=== PATIENT | male | born 1960 | race Caucasian/White ===

== ENCOUNTER → 2016-10-19 | Outpatient (CLI) | payer OTHER ==
[~2016-10-19] MED LIST: DOBUTamine DRIP for NUC MED 500 MG in DEXTROSE/WATER 1 250ML.BAG IV ONE
--- NOTE | 2016-10-19 09:18 | US ---
EXAMINATION TYPE: US carotid duplex BILAT DATE OF EXAM: 10/19/2016 COMPARISON: NONE CLINICAL HISTORY: R42 Dizziness and giddiness. EXAM MEASUREMENTS: RIGHT: Peak Systolic Velocity (PSV) cm/sec ----- Right CCA: 123.9 ----- Right ICA: 88.5 ----- Right ECA: 96.3 ICA/CCA ratio: 0.7 RIGHT: End Diastole cm/sec ----- Right CCA: 19.5 ----- Right ICA: 27.4 ----- Right ECA: 7.7 LEFT: Peak Systolic Velocity (PSV) cm/sec ----- Left CCA: 94.4 ----- Left ICA: 96.3 ----- Left ECA: 102.3 ICA/CCA ratio: 1.0 LEFT: End Diastole cm/sec ----- Left CCA: 21.5 ----- Left ICA: 39.2 ----- Left ECA: 13.6 VERTEBRALS (direction of flow): Right Vertebral: Antegrade Left Vertebral: Antegrade Mild amount of plaque visualized bilaterally. No elevated velocities, no significant stenosis IMPRESSION: Mild amount of plaque visualized bilaterally. No elevated velocities, no significant stenosis Criteria for Assigning % of Stenosis / Diameter reduction (Estimation based on the indirect measurements of the internal carotid artery velocities (ICA PSV). 1. Normal (no stenosis)=ICA PSV < 125 cm/s: ratio < 2.0: ICA EDV<40 cm/s. 2. Less than 50% stenosis=ICA PSV < 125 cm/s: ratio < 2.0: ICA EDV<40 cm/s. 3. 50 to 69% stenosis=ICA PSV of 125 to 230 cm/s: ration 2.0 ? 4.0: ICA EDV 40-100 cm/s. 4. Greater than 70% stenosis to near occlusion= ICA PSV > 230 cm/s: ratio > 4.0: ICA EDV > 100 cm/s. 5. Near occlusion= ICA PSV velocities may be low or undetectable: variable ratio and ICA EDV. 6. Total occlusion=unable to detect flow.
--- NOTE | 2016-10-19 12:39 | P.STRESS ---
- Stress Test Note Stress Test Results/Findings: Exam Performed: dobutamine stress echo Exam Date: 10/19/16 Reason for Exam: VERTIGO Height: 6 ft Weight: 167.829 kg Protocol: DOBUTAMINE Stage: 3 Duration of Exercise: 9:07 Resting Heart Rate: 85 Resting Blood Pressure: 140/69 Maximum Achieved Heart Rate: 138 Maximum Achieved Blood Pressure: 142/68 85% PMHR: 138 100% PMHR: 162 METS: Technologist Comment: Stress Test Results/Findings: This patient is being evaluated for cardiac status. Patient has history of of hypertension, family history and symptoms of dizziness. Baseline EKG shows sinus rhythm with normal IN and QRS duration with occasional PVCs. Blood pressure at rest is 140/69% of 85. A standard dose of dobutamine was initiated and was titrated to maximum 30 mics, achieving a maximal heart of 137 with a blood pressure of about 96/33. EKGs taken during and after dobutamine infusion did not reveal any significant changes to sized ischemia. Patient's blood pressure gradually improved to 140/60. Within about 8 minutes, Patient did not express any chest pain. Echo data: Baseline echo images showed normal wall motion and thickening. EKGs taken at low level and also peak infusion of dobutamine showed progressive augmentation of the wall motion and thickening. Final impression: #1. Negative dobutamine stress test #2. Negative dobutamine stress echo.
--- NOTE | 2016-10-23 10:03 | ECHOS ---
Stress Test Results/Findings: Exam Performed: dobutamine stress echo Exam Date: 10/19/16 Reason for Exam: VERTIGO Height: 6 ft Weight: 167.829 kg Protocol: DOBUTAMINE Stage: 3 Duration of Exercise: 9:07 Resting Heart Rate: 85 Resting Blood Pressure: 140/69 Maximum Achieved Heart Rate: 138 Maximum Achieved Blood Pressure: 142/68 85% PMHR: 138 100% PMHR: 162 METS: Technologist Comment: Stress Test Results/Findings: This patient is being evaluated for cardiac status. Patient has history of of hypertension, family history and symptoms of dizziness. Baseline EKG shows sinus rhythm with normal WA and QRS duration with occasional PVCs. Blood pressure at rest is 140/69% of 85. A standard dose of dobutamine was initiated and was titrated to maximum 30 mics, achieving a maximal heart of 137 with a blood pressure of about 96/33. EKGs taken during and after dobutamine infusion did not reveal any significant changes to sized ischemia. Patient's blood pressure gradually improved to 140/60. Within about 8 minutes, Patient did not express any chest pain. Echo data: Baseline echo images showed normal wall motion and thickening. EKGs taken at low level and also peak infusion of dobutamine showed progressive augmentation of the wall motion and thickening. Final impression: #1. Negative dobutamine stress test #2. Negative dobutamine stress echo. [facility]ITALBrianna
== END | disposition home or self-care (01) ==
LOC: RADUSMAIN 08:26
PROVIDERS: ATTEND Pediatrics
DX: I65.23 Occlusion and stenosis of bilateral carotid arteries (principal); R42 Dizziness and giddiness
CPT/HCPCS: 93350; 93017; 93880; Q9957

== ENCOUNTER → 2017-09-03 | Outpatient (CLI) | payer OTHER ==
[2017-09-03 16:47] LABS: HCT 40.7 % (39.0-53.0); HGB 13.9 gm/dL (13.0-17.5); MCH 31.9 pg (25.0-35.0); MCHC 34.1 g/dL (31.0-37.0); MCV 93.4 fL (80.0-100.0); Mean Platelet Volume 7.6; Platelet Count 235 k/uL (150-450); RBC 4.36 m/uL (4.30-5.90); WBC 7.3 k/uL (3.8-10.6)
[2017-09-03 16:52] LABS: Appearance,Urine Clear (Clear); Bilirubin,Urine Negative (Negative); Blood,Urine Negative (Negative); Color,Urine Yellow; Glucose,Urine (UA) Negative (Negative); Ketones,Urine Negative (Negative); Leukocyte Esterase,Urine Negative (Negative); Nitrite,Urine Negative (Negative); Protein,Urine Negative (Negative); Specific Gravity,Urine 1.015 (1.001-1.035); Urobilinogen,Urine <2.0 mg/dL (<2.0)
[2017-09-03 16:57] LABS: Partial Thromboplastin Time 22.8 sec (22.0-30.0); Prothrombin Time 10.1 sec (9.0-12.0)
[2017-09-03 16:59] LABS: Albumin 4.4 g/dL (3.5-5.0); Calcium 10.1 mg/dL (8.4-10.2); Potassium 4.5 mmol/L (3.5-5.1); Total Bilirubin 0.4 mg/dL (0.2-1.3); Total Protein 7.2 g/dL (6.3-8.2)
== END | disposition home or self-care (01) ==
LOC: LABPAT 15:44
PROVIDERS: ATTEND Orthopaedic Surgery
DX: Z01.818 Encounter for other preprocedural examination (principal); Z01.812 Encounter for preprocedural laboratory examination
CPT/HCPCS: 80053; 81003; 85027; 85610; 85730; 86850; 86900; 86901; 87070; 93005

== ENCOUNTER 2017-09-11 05:36 | Inpatient (IN) | payer OTHER ==
[2017-09-04 08:18] VITALS: BMI 50.1
[~2017-09-11 05:36] MED LIST changes: +ACETAMINOPHEN TAB 500 MG TAB PO ONE; +DEXAMETHASONE SOD PHOSPHATE 10 MG/ML 1 ML VIAL IV ONE; -DOBUTamine DRIP for NUC MED 500 MG in DEXTROSE/WATER 1 250ML.BAG IV ONE; +LIDOCAINE 1% 20 ML VIAL (10MG/ML) FOR IV START INTRADERMA PRN; +MELOXICAM 7.5 MG TAB PO ONE; +MIDAZOLAM 2 MG/2 ML VIAL IV PRN; +ONDANSETRON 4 MG/2 ML VIAL IVP ONE; +TRANEXAMIC ACID 1,000 MG in SODIUM CHLORIDE 0.9% 50 ML IVPB ONE; +fentaNYL (PF) 50 MCG/ML 2 ML AMP IV PRN
[2017-09-11] MEDS ORDERED: ROPIVACAINE 246.25 MG, EPINEPHrine 0.5 MG, KETOROLAC 30 MG, cloNIDine HCL/PF 80 MCG, WA... MISCELLANE ONE ×5 (06:22)
[2017-09-11] MEDS ORDERED: DIAZEPAM 5 MG TAB PO PRN ×2 (06:50)
[2017-09-11] MEDS ORDERED: NALOXONE 0.4 MG/ML 1 ML VIAL IV PRN (06:50)
[2017-09-11] MEDS ORDERED: MAGNESIUM HYDROXIDE 2,400 MG/10 ML CUP PO PRN (06:50)
[2017-09-11] MEDS: LACTATED RINGERS 1,000 ML IV SCH ×2 (06:50→20:51)
[2017-09-11] MEDS ORDERED: ONDANSETRON 4 MG/2 ML VIAL IVP PRN (06:50)
[2017-09-11] MEDS ORDERED: HYDROmorphone 0.5 MG/0.5 ML SYRINGE IVP PRN ×2 (06:50)
[2017-09-11] MEDS ORDERED: HYDROcodone/APAP 5-325MG 1 EACH TAB PO PRN (06:50)
[2017-09-11] MEDS ORDERED: HYDROmorphone 1 MG/ML 1 ML SYRINGE IVP PRN (06:50)
[2017-09-11] MEDS ORDERED: hydrOXYzine PAMOATE 25 MG CAP PO PRN (06:50)
[2017-09-11 07:04] LABS: Glucose,Whole Blood 103 mg/dL (75-99)
[2017-09-11] MEDS ORDERED: SODIUM CHLORIDE 0.9% 100 ML BAG ONE (07:07)
[2017-09-11] MEDS ORDERED: TRANEXAMIC ACID 1,000 MG/10 ML VIAL ONE (07:07)
[2017-09-11] MEDS ORDERED: HEPARIN SODIUM,PORCINE 10,000 UNIT/ML 1 ML VIAL ONE (07:07)
[2017-09-11] MEDS ORDERED: MIDAZOLAM 2 MG/2 ML VIAL ONE (07:07)
[2017-09-11] MEDS ORDERED: fentaNYL (PF) 50 MCG/ML 2 ML AMP ONE (07:07)
[2017-09-11] MEDS ORDERED: SODIUM CHLORIDE 0.9% IRRIG 1,000 ML BTL IRRIGATION ONE (07:07)
[2017-09-11] MEDS ORDERED: ceFAZolin 3,000 MG in SODIUM CHLORIDE 0.9% IRRIGATIO 3,000 ML IRRIGATION ONE (07:46)
--- NOTE | 2017-09-11 08:57 | P.OP ---
Date of Procedure: 09/11/17 Preoperative Diagnosis: Severe osteoarthritis left hip Postoperative Diagnosis: Severe osteoarthritis left hip Procedure(s) Performed: Left total hip arthroplasty with a direct anterior approach Implants: Jolly and nephew Polarstem size 4 standard Jolly & Nephew R3, 3 hole acetabular shell, 56 mm Jolly & Nephew reflection 6.5 mm cancellus screw, 20 mm 2 Jolly [employer] Nephew R3, XLPE 20 acetabular liner Jolly & Nephew Oxinium femoral head 36 m, +0 All components were press-fit. The articulation is Oxinium on polyethylene. Anesthesia: spinal Surgeon: Roger Kramer Rubber Compounder #1: Angelica Wick Estimated Blood Loss (ml): 200 (65 mL returned with Cell Saver) Pathology: other (Femoral head) Condition: stable Disposition: PACU Indications for Procedure: After failure of conservative treatment we discussed the surgical and nonsurgical treatment options at length. Patient wishes to proceed with a total hip arthroplasty with a direct anterior approach. Complications specific to this procedure were discussed at length, including but not limited to infection, leg length discrepancy, dislocation, and nerve injury. Patient is aware of all these complications and informed consent was obtained Operative Findings: The operative findings are consistent with severe osteoarthritis of the left hip Description of Procedure: Patient was seen and evaluated in the preoperative area, consent was reviewed, and the surgical site was marked with a skin marker. Patient was then brought to the operating room and given prophylactic antibiotics intravenously. 1 g of Tranexamic acid was also given. A spinal anesthetic was administered by the anesthesia department. The patient was then placed on the [place] table with the bony prominences well-padded. The hip area was then prepped and draped in usual sterile fashion. A universal timeout was then performed, which confirmed the patient's name, surgical site, ALLERGIES, and procedure being performed. Next the incision site was located at 1 cm distal and 1 cm lateral to the anterior superior iliac spine. The skin and subcutaneous tissues were sharply incised. Incision was carefully dissected down to the fascia overlying the tensor fascia clement muscle. This fascia was then incised in line with the incision. Next, using blunt finger dissection, the tensor fascia clement muscle was dissected off its investing fascia. The muscle was then carefully retracted laterally with a cobra retractor over the lateral neck of the femur. Next, the circumflex vessels were identified and cauterized using the AquaMantis device. The anterior hip capsule was then exposed. The capsule was then opened and an inverted T fashion. Cobra retractors were then placed intracapsularly. The proximal femur was then visualized. The femoral neck was then osteotomized appropriate level above the lesser trochanter. Small amount of traction was placed with the [place] table. A small wedge of bone was then removed from the remaining femoral head. Next, using a corkscrew femoral head was easily removed from the acetabulum. On gross visual inspection, the femoral head had complete loss of articular cartilage in multiple periarticular osteophytes. Attention was then turned to the acetabulum. the acetabulum was exposed and any remaining labrum was excised. Sequential reaming of the acetabulum was performed using fluoroscopic guidance. When the appropriate size was reached, a trial was then placed. The position and fit of the trial was checked with fluoroscopy. The trial was then removed. Then, using fluoroscopic guidance, the final implant was impacted at 20 of anteversion and 40 of abduction, and fully seated in the acetabulum. 2 screws were then placed in the acetabulum. Again fluoroscopy was used to check position of the screws. Next, the liner was then impacted, with a 20 elevated liner located in the anterior superior quadrant. Component locking was confirmed. Attention was then directed to the femur. With the aid of the [place] table, the femur was externally rotated to approximately 130, extended, and abducted under the opposite leg. A side hook was then placed under the proximal femur, and the side hook elevator was used to elevate the proximal femur. Retractors were then placed. A capsular release was performed, as well as a release of the conjoined tendon, which afforded excellent visualization of the proximal femur. Next, a box osteotome was used to lateralize the proximal femur. A hand sprayer was then used to locate the femoral canal. Sequential broaching was then performed with appropriate size which afforded excellent fixation in the proximal femur. A trial was then placed with appropriate head and neck, and the hip was gently reduced with the aid of the [place] table. Fluoroscopy was then used to check position of the components, as well as to ensure equal leg lengths. The hip was then gently dislocated and the trials were then removed. Final implants were then impacted and the hip was again reduced. Final fluoroscopic x-rays confirmed that the components were in anatomic position, as well as equal leg lengths. The hip was also taken through range of motion, and found to be stable. The hip was then copiously irrigated with antibiotic solution with pulsatile lavage. The hip was then irrigated with Irrisept solution. The soft tissues were then injected with a ropivacaine solution, which consisted of 246.25 mg of ropivacaine, 0.5 mg of epinephrine, 30 mg of Toradol, 80 g of clonidine, and 48.45 mL of sterile water, for a total of 100 mL of fluid injected. A second dose of 1 g of Tranexamic acid was also given. the fascia was then closed with 2-0 strata fix suture. The subcutaneous tissue was closed with 3-0 Vicryl. The subcuticular tissue was closed with 3-0 strata fix suture. The skin was then closed with Dermabond glue and a sterile silver dressing. The patient was then transferred to the recovery room in stable condition. The property assistant DOMO Kong was required due to the complexity of surgery, and the need for skilled surgical assistant certified for positioning, draping, exposure, retraction, and closure of the wound.
--- NOTE | 2017-09-11 09:03 | FL ---
EXAMINATION TYPE: FL guidance operating room, XR Hip Limited LT DATE OF EXAM: 09/11/2017 CLINICAL HISTORY: Left hip pain status post replacement today. TECHNIQUE: Fluoroscopy. Limited intraoperative views left hip are acquired COMPARISON: None. FINDINGS: Fluoroscopic guidance was provided during hip replacement procedure performed by Dr. Lazara fonseca. A total of 50 seconds of fluoroscopic time was utilized during the procedure and 3 spot intraop erative images are acquired. Images acquired show metallic hardware from total hip arthroplasty which appears satisfactory in posi tion on single frontal projection. IMPRESSION: As Above.
--- NOTE | 2017-09-11 09:44 | XR ---
EXAMINATION TYPE: XR Hip Limited LT DATE OF EXAM: 09/11/2017 CLINICAL HISTORY: Left hip pain and osteoarthritis status post replacement earlier today. TECHNIQUE: Single AP portable view of left hip is obtained immediately postoperatively. COMPARISON: None. FINDINGS: Exam slightly suboptimal due to portable technique and patient's large body habitus. Metall ic hardware from left hip arthroplasty is seen and appears satisfactory in alignment and position. Ov erlying soft tissue is unremarkable. IMPRESSION: Metallic hardware from left hip arthroplasty is satisfactory in position.
[2017-09-11] MEDS: ASPIRIN 325 MG TAB PO SCH ×2 (15:43→20:56)
[2017-09-11] MEDS: HYDROcodone/APAP 5-325MG 1 EACH TAB PO PRN ×2 (15:54→22:03)
[2017-09-11] MEDS: SODIUM CHLORIDE 0.9% 1,000 ML IV SCH (16:44)
[2017-09-11] MEDS ORDERED: guaiFENesin 600 MG TABLET.ER PO PRN (18:08)
--- NOTE | 2017-09-11 20:29 | CONS ---
CONSULTATION DATE OF SERVICE: 09/11/2017. REASON FOR CONSULTATION: Advice regarding hypertension, other medical issues requested by Orthopedic Surgery. HISTORY OF PRESENT ILLNESS: This 57-year-old gentleman with a past medical history of multiple medical problems, including hypertension, DJD, sleep apnea being followed by Dr. Davey Hillman in the outpatient setting, is apparently using prednisone 10 mg for shoulder pain since last summer. The patient underwent left hip arthroplasty by Dr. Kramer. The patient had some issues related to hypotension during the surgery. Apparently the blood pressure is 102/68. There is no history of any fever, rigors. No history of headache, loss of consciousness. No chest pain, palpitation at this time. PAST MEDICAL HISTORY: History of hypertension, DJD, history of sleep apnea, history of colonoscopy. MEDICATIONS PRIOR TO ADMISSION: Include home medications are: 1. Prednisone 10 mg daily. 2. Mucinex 600 mg daily p.r.n. 3. Norvasc 5 mg p.o. daily. 4. Adipex 37.5 mg p.o. q.a.m. 5. Naprosyn 100 mg p.o. b.i.d. 6. Multivitamin 1 p.o. daily. 7. Zestril 2 tablets p.o. daily. 8. Lasix 20 mg p.o. daily. ALLERGIES: None. FAMILY HISTORY: No history of heart disease or strokes in family. SOCIAL HISTORY: No history of smoking. Occasional alcohol intake. REVIEW OF SYSTEMS: ENT: No diminished hearing, diminished vision. CARDIOVASCULAR: No angina, palpitations. RESPIRATORY: No cough or hemoptysis. GI: No nausea or vomiting. : No dysuria. NERVOUS: No numbness or weakness. ALLERGY/IMMUNOLOGY: No asthma or hay fever. MUSCULOSKELETAL: As mentioned earlier. ENDOCRINE: As mentioned earlier. CONSTITUTIONAL: As mentioned earlier. DERMATOLOGY: Negative. RHEUMATOLOGY: Negative. PSYCHIATRY: As mentioned earlier. PHYSICAL EXAMINATION: Alert, oriented x3. Pulse 97, blood pressure 102/68, respirations 16, temperature 98 degrees, pulse ox 94% on 3L. HEENT: Conjunctivae normal. Oral mucosa moist. NECK: No jugular venous distention. No carotid bruits. No lymph node enlargement. CARDIOVASCULAR: S1, S2 muffled. No S3, S4. RESPIRATORY: Breath sounds diminished in the bases. No rhonchi. No crackles. ABDOMEN: Soft, nontender. No mass palpable. LEGS: Status post left hip arthroplasty. NERVOUS SYSTEM: Higher functions as mentioned earlier. Moves all 4 limbs. No focal motor or sensory deficits. LYMPHATIC: No lymphadenopathy in neck or axillae. SKIN: No ulcer, rash or bleeding. JOINTS: As mentioned earlier. LABS: At this time, glucose 103. The previous labs prior to admission: CBC within normal limits. Coags are normal. Chemistry shows creatinine of 2.20. ASSESSMENT: 1. Status post left hip arthroplasty. 2. Relative hypotension. 3. Increased creatinine with possibly chronic kidney disease stage 3. 4. History of degenerative joint disease. 5. Hypertension. 6. History of sleep apnea on CPAP. 7. Obesity with a body mass index of 50.2. RECOMMENDATIONS AND DISCUSSION: In this 57-year-old gentleman who presented with multiple medical problems, will monitor the patient closely, continue the current medical management. I would recommend to hold the blood pressure medications and also the patient possibly could have relative adrenal suppression. I would recommend IV fluids. Monitor blood pressure closely. I would also recommend a short course of IV steroids, hydrocortisone at this time. Other than that, basic labs have been ordered, including creatinine. Avoid nephrotoxic medications and we will continue to monitor and the patient may be asked to follow up with Dr. Hillman after discharge. Thank you, Dr. Kramer, for letting us participate in this patient. MMCHANDLERL / IJN: [id number] /
[2017-09-11 20:50] LABS: Appearance,Urine Clear (Clear); Bilirubin,Urine Negative (Negative); Blood,Urine Negative (Negative); Color,Urine Yellow; Glucose,Urine (UA) Negative (Negative); Ketones,Urine Trace (Negative); Leukocyte Esterase,Urine Negative (Negative); Nitrite,Urine Negative (Negative); PH, Urine 5.5 (5.0-8.0); Protein,Urine Trace (Negative); Specific Gravity,Urine 1.025 (1.001-1.035); Urobilinogen,Urine <2.0 mg/dL (<2.0)
[2017-09-11] MEDS: HYDROCORTISONE SUCCINATE 100 MG/2 ML VIAL IV SCH (20:56)
[2017-09-11] MEDS: PANTOPRAZOLE 40 MG TABLET PO SCH (20:57)
[2017-09-11] MEDS ORDERED: SENNOSIDES-DOCUSATE SODIUM 1 EACH TAB PO SCH (21:00)
[2017-09-12] MEDS ORDERED: HYDROCORTISONE SUCCINATE 100 MG/2 ML VIAL ONE (01:45)
[2017-09-12] MEDS: SODIUM CHLORIDE 0.9% 1,000 ML IV SCH (04:22)
[2017-09-12] MEDS: HYDROCORTISONE SUCCINATE 100 MG/2 ML VIAL IV SCH ×2 (04:23→07:35)
[2017-09-12] MEDS: HYDROcodone/APAP 5-325MG 1 EACH TAB PO PRN (07:31)
[2017-09-12] MEDS: PANTOPRAZOLE 40 MG TABLET PO SCH (07:33)
[2017-09-12] MEDS: ASPIRIN 325 MG TAB PO SCH (07:35)
[2017-09-12 07:43] LABS: Basophils % (A) 0 %; Eosinophils % (A) 0 %; HCT 36.5 % (39.0-53.0); Lymphocytes # (A) 0.8 k/uL (1.0-4.8); Lymphocytes % (A) 8 %; MCH 31.2 pg (25.0-35.0); MCHC 32.9 g/dL (31.0-37.0); MCV 94.8 fL (80.0-100.0); Monocytes # (A) 0.6 k/uL (0-1.0); Monocytes % (A) 6 %; Neutrophils # (A) 8.6 k/uL (1.3-7.7); Neutrophils % (A) 85 %; Platelet Count 226 k/uL (150-450); RBC 3.85 m/uL (4.30-5.90); RDW 13.1 % (11.5-15.5)
[2017-09-12 07:46] VITALS: BP 101/68; PULSE 98; RESP 16; TEMP 98.3
[2017-09-12 08:27] LABS: Calcium 9.1 mg/dL (8.4-10.2); Potassium 4.6 mmol/L (3.5-5.1)
--- NOTE | 2017-09-12 08:29 | P.DS ---
Providers Date of admission: 09/11/17 05:36 Expected date of discharge: 09/12/17 Attending physician: Roger Kramer Consults: 09/11/17 06:50 Consult Physician Routine Consulting Provider: Davey Hillman Consult Reason/Comments: medical management Do you want consulting provider notified?: Yes 09/11/17 14:44 Consult Physician Routine Consulting Provider: Luz Marina Bee Consult Reason/Comments: medical management Do you want consulting provider notified?: Yes Primary care physician: Davey Hillman - Discharge Diagnosis(es) (1) Primary osteoarthritis of left hip Current Visit: Yes Status: Acute (2) S/P total hip arthroplasty Current Visit: Yes Status: Acute Hospital Course: This is a 57-year-old male with known history of degenerative arthritis of the left hip. The patient presents for evaluation. After discussion and consideration patient elects to proceed with total hip arthroplasty. The patient is seen preoperatively by Dr. Kramer and medically cleared for surgery by their primary care physician. Patient is admitted to [facility] on 09/11/2017 for total hip arthroplasty. The procedures performed without complication or sequelae. The patient is doing well postoperatively. Labs and vital signs are stable on day of discharge. On day of discharge patient's hip incision is healing well. There is minimal erythema. There is no drainage noted at this time. There is minimal soft tissue swelling to the hip and thigh. Patient has full foot and ankle motion without difficulty or pain. Neurovascular status to the left lower extremity is intact. Patient is discharged home in good condition. Please see med rec for accurate list of home medications. Plan - Discharge Summary Discharge Rx Participant: No New Discharge Prescriptions: New Aspirin 325 mg PO BID #60 tab HYDROcodone/APAP 5-325MG [[place] 5-325] 1 - 2 tab PO Q4-6H PRN #84 tab PRN Reason: Pain Sennosides [Senokot] 1 tab PO BID #60 tablet No Action amLODIPine [Norvasc] 5 mg PO DAILY Phentermine HCl [Adipex-P] 37.5 mg PO QAM Lisinopril-Hctz 20-25 mg [Zestoretic 20-25] 2 tab PO DAILY predniSONE 10 mg PO DAILY Naproxen [Naprosyn] 500 mg PO Q12HR Furosemide [Lasix] 20 mg PO DAILY guaiFENesin [Mucinex] 600 mg PO DAILY PRN PRN Reason: Congestion Multivitamin [Men's Multi-Vitamin] 1 tab PO DAILY Discharge Medication List Lisinopril-Hctz 20-25 mg [Zestoretic 20-25] 2 tab PO DAILY 09/23/15 [History] Phentermine HCl [Adipex-P] 37.5 mg PO QAM 09/23/15 [History] amLODIPine [Norvasc] 5 mg PO DAILY 09/23/15 [History] Furosemide [Lasix] 20 mg PO DAILY 09/04/17 [History] Multivitamin [Men's Multi-Vitamin] 1 tab PO DAILY 09/04/17 [History] Naproxen [Naprosyn] 500 mg PO Q12HR 09/04/17 [History] guaiFENesin [Mucinex] 600 mg PO DAILY PRN 09/04/17 [History] predniSONE 10 mg PO DAILY 09/04/17 [History] Aspirin 325 mg PO BID #60 tab 09/12/17 [Rx] HYDROcodone/APAP 5-325MG [[place] 5-325] 1 - 2 tab PO Q4-6H PRN #84 tab 09/12/17 [ Rx] Sennosides [Senokot] 1 tab PO BID #60 tablet 09/12/17 [Rx] Follow up Appointment(s)/Referral(s): Roger Kramer DO [Doctor of Osteopathic Medicine] - 2 Weeks Activity/Diet/Wound Care/Special Instructions: Weightbearing as tolerated with walker Leave dressing intact. Dressing may be removed by home care nurse in 10 days. May shower with dressing on. Follow[facility]up with [facility] in 2 weeks, please call with any questions or concerns [phone] Discharge Disposition: HOME WITH HOME HEALTH SERVICES
[2017-09-12] MEDS ORDERED: MELOXICAM 7.5 MG TAB PO SCH (09:00)
[2017-09-12] MEDS ORDERED: PATIENT'S OWN MED (Phentermine Hcl [Adipex-P] 37.5 MG) PO SCH (09:00)
[2017-09-12] MEDS ORDERED: predniSONE 10 MG TAB PO SCH (09:00)
[2017-09-12] MEDS ORDERED: MULTIVITAMINS, THERA 1 EACH TAB PO SCH (12:00)
== END 2017-09-12 12:47 | disposition home health service (06) | DRG 470 ==
LOC: 2ORMAIN 05:36 → 3SUR 14:39
PROVIDERS: ADMIT Orthopaedic Surgery; ATTEND Orthopaedic Surgery
PROC: 30233N0 Transfusion of Autologous Red Blood Cells into Peripheral Vein, Percutaneous Approach (ICD-10-PCS; 2017-09-11)
PROC: 0SRB06A Replacement of Left Hip Joint with Oxidized Zirconium on Polyethylene Synthetic Substitute, Uncemented, Open Approach (ICD-10-PCS; principal; 2017-09-11 07:00)
DX: M16.12 Unilateral primary osteoarthritis, left hip (principal); Z68.43 Body mass index [BMI] 50.0-59.9, adult; I95.9 Hypotension, unspecified; E66.9 Obesity, unspecified; N18.3 Chronic kidney disease, stage 3 (moderate); I12.9 Hypertensive chronic kidney disease with stage 1 through stage 4 chronic kidney disease, or unspecified chronic kidney disease; M25.519 Pain in unspecified shoulder; G47.30 Sleep apnea, unspecified; Z79.1 Long term (current) use of non-steroidal anti-inflammatories (NSAID); Z79.52 Long term (current) use of systemic steroids; Z79.899 Other long term (current) drug therapy
CPT/HCPCS: 73501; 80048; 81003; 85025; 86850; 86891; 86900; 86901; 88300

== ENCOUNTER 2022-11-03 09:46 | Day surgery (SDC) | payer OTHER ==
[~2022-11-03 09:46] MED LIST changes: -ACETAMINOPHEN TAB 500 MG TAB PO ONE; -DEXAMETHASONE SOD PHOSPHATE 10 MG/ML 1 ML VIAL IV ONE; +LACTATED RINGERS 1,000 ML IV SCH; -LIDOCAINE 1% 20 ML VIAL (10MG/ML) FOR IV START INTRADERMA PRN; -MELOXICAM 7.5 MG TAB PO ONE; -MIDAZOLAM 2 MG/2 ML VIAL IV PRN; -ONDANSETRON 4 MG/2 ML VIAL IVP ONE; -TRANEXAMIC ACID 1,000 MG in SODIUM CHLORIDE 0.9% 50 ML IVPB ONE; -fentaNYL (PF) 50 MCG/ML 2 ML AMP IV PRN
[2022-11-03 10:36] VITALS: RESP 18; TEMP 98
[2022-11-03 10:45] LABS: Glucose,Whole Blood 107 mg/dL (70-110)
[2022-11-03] MEDS ORDERED: PROPOFOL 10 MG/ML 20 ML VIAL IV ONE (11:24)
--- NOTE | 2022-11-03 11:43 | P.PCN ---
Date of Procedure: 11/03/22 Procedure(s) Performed: BRIEF HISTORY: Patient is a 62-year-old pleasant white male scheduled for an elective colonoscopy as a part of screening for colon cancer. PROCEDURE PERFORMED: Colonoscopy. PREOPERATIVE DIAGNOSIS: Screening for colon cancer. IV sedation per Anesthesia. PROCEDURE: After informed consent was obtained, the patient, was brought into the endoscopy unit. IV sedation was administered by Anesthesia under continuous monitoring. Digital rectal examination was normal. Initially the Olympus CF-160 flexible video colonoscope was then inserted in the rectum, gradually advanced into the cecum without any difficulty. Careful examination was performed as the scope was gradually being withdrawn. Ileocecal valve and the appendiceal orifice were visualized and appeared normal. Prep was excellent. Mucosa of the cecum, ascending colon, transverse colon, descending colon, sigmoid colon, and rectum appeared normal. Retroflexion was performed in the rectum and no lesions were seen. The patient tolerated the procedure well. IMPRESSION: Normal-appearing colon from rectum to cecum with no evidence of colorectal neoplasia. RECOMMENDATIONS: Findings of this examination were discussed with the patient as well as his family. He was advised to have a repeat screening colonoscopy in 10 years..
[2022-11-03 12:03] VITALS: BP 114/72; PULSE 83
== END 2022-11-03 12:19 | disposition home or self-care (01) ==
LOC: ORWHC2ENDO 09:46
PROVIDERS: ATTEND Internal Medicine Gastroenterology
DX: Z12.11 Encounter for screening for malignant neoplasm of colon (principal); I10 Essential (primary) hypertension; G47.33 Obstructive sleep apnea (adult) (pediatric); E11.9 Type 2 diabetes mellitus without complications; E66.01 Morbid (severe) obesity due to excess calories; Z68.43 Body mass index [BMI] 50.0-59.9, adult; Z79.84 Long term (current) use of oral hypoglycemic drugs; Z79.52 Long term (current) use of systemic steroids; Z79.899 Other long term (current) drug therapy; Z98.890 Other specified postprocedural states; Z79.811 Long term (current) use of aromatase inhibitors
CPT/HCPCS: 45378; J2704